=== PATIENT | female | born 1980 | race African-American/Black ===

== ENCOUNTER 2017-12-11 05:59 | Emergency (ER) | payer MEDICAID ==
[~2017-12-11] VITALS: Ht 170.2 cm; Wt 101.6 kg
[~2017-12-11 05:59] MED LIST: DOXYCYCLINE MO100 MG ORAL
[2017-12-11 06:00] VITALS: BP 114/75
[2017-12-11] MEDS ORDERED: Morphine Sulfate 4mg/ml Inj (IV USE ONLY) ONE (06:04)
--- NOTE | 2017-12-11 06:13 | Emergency Room Report ---
History of Present Illness General Chief Complaint: Abdominal Pain Source: Patient Present Illness HPI This patient c/o pain around rectum. She also is having bm from there. And her usual bm from colostomy. This patient has no old records here. 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 Years ago she needed a colostomy per Dr. Arce and since then no bm through rectum. She started having bm through rectum a few days ago. She was admitted/seen at [facility] three days ago with attempted colostomy. Per patient they were unsuccessful and she was told that the tube could not pass. She was advised to go to [facility] or [facility] and she was d/c. She came here b/c of the pain and she says she intended to go to [facility] tomorrow. There is no fever. There is no abd pain. The problem is bm through the rectum/ vaginal area and discomfort/pain there. Allergies: Coded Allergies: IBUPROFEN (Verified Allergy, Unknown, 12/11/17) HIVES VANCOMYCIN (Verified Allergy, Unknown, 12/11/17) TEMPORARY RENAL FAILURE Patient History Last Menstrual Period: n/a Now: No Nursing Documentation-[facility] Past Medical History: No History, Except For Hx Gastrointestinal Problems: Yes - colostomy Hx Neurological Problems: No - hidradenitis Review of Systems Constitutional: Reports: no symptoms Eye: Reports: no symptoms ENT: Reports: no symptoms Respiratory: Reports: no symptoms Cardiovascular: Reports: no symptoms Gastrointestinal: Reports: no symptoms Genitourinary: Reports: see HPI, incontinence Musculoskeletal: Reports: no symptoms Skin: Reports: no symptoms Psychiatric: Reports: no symptoms Neurological: Reports: no symptoms Endocrine: Reports: no symptoms Hematologic/Lymphatic: Reports: no symptoms Allergic: Reports: no symptoms All Other Systems: negative except mentioned in HPI Physical Exam Vital Signs Date Time Temp Pulse Resp B/P (MAP) Pulse Ox O2 Delivery O2 Flow Rate FiO2 12/11/17 05:52 97.7 112 18 114/75 100 Room Air 97.7 Sp02 EP Interpretation: reviewed, normal General Appearance: normal inspection, alert, GCS 15, non-toxic, mild distress , other - uncomfortable Head: normocephalic, atraumatic Eyes: bilateral eye normal inspection, bilateral eye PERRL, bilateral eye EOMI ENT: normal ENT inspection, hearing grossly normal, normal pharynx, no angioedema, normal voice, moist mucus membranes Neck: normal inspection, full range of motion, supple, no meningismus, no bony tend Respiratory: normal inspection, lungs clear, normal breath sounds, no rhonchi, no respiratory distress, no retraction, no accessory muscle use, no wheezing Cardiovascular #1: normal inspection, regular rate, rhythm, no edema Gastrointestinal: normal bowel sounds, non tender, soft, non-distended, other - colostomy with small amount bm Rectal: other - the perineum/rectal area is very distorted. post surgical. there is feces and it may be vaginal origin. Musculoskeletal: gait/station normal, normal range of motion, other - surgical scar right axilla Neurologic: normal inspection, alert, oriented x3, responsive, motor strength/ tone normal Psychiatric: normal inspection, judgement/insight normal, memory normal Suicide Risk Assessment: Suicidal Ideation: No Had intent to initiate attempt: No Pt's plan for suicide attempt: No Has means to complete attempt: No Skin: normal inspection, normal color, no rash, warm/dry Medical Decision Making Diagnostic Impression: Primary Impression: Incontinence of feces ER Course This is a tough situation but it is not an emergency. There is no fever. This is a surgical problem that must be addressed but not emergently. This patient needs surgical/subspecialty care. She has a PMD and she also intends to go to [facility] tomorrow or she may even go today. She was waiting for her mom to get off work tonight. But was so uncomfortable called 911 and brought her here. I will be giving her a pain shot to help her be more comfortable but beyond that she needs to follow through with her plan. Pt. is agreeable with this. She understands there is no subspecialty surgical care available here and that it is not an emergency condition. The patient is stable for d/c. There is no expected worsening of her clinical condition with d/c. Last Vital Signs Date Time Temp Pulse Resp B/P (MAP) Pulse Ox O2 Delivery O2 Flow Rate FiO2 12/11/17 05:52 97.7 112 18 114/75 100 Room Air 97.7 Disposition: HOME, SELF-CARE Condition: Stable Patient Instructions: Anal Fistula Hernesto Raygoza M.D. Dec 11, 2017 06:13
[2017-12-11] MEDS ORDERED: Morphine Sulfate 4mg/ml Inj (IV USE ONLY) IVP ONE (06:15)
[2017-12-11 06:20] VITALS: BP 114/75
== END 2017-12-11 06:20 | disposition home or self-care (01) ==
LOC: EDBD 05:59 → EMR 06:11
DX: K60.3 Anal fistula (principal); R15.9 Full incontinence of feces; Z93.3 Colostomy status
CPT/HCPCS: 96374; 99284; J2270